=== PATIENT | female | born 1985 | race African-American/Black ===

== ENCOUNTER 2021-02-15 22:39 | Emergency (ER) | payer SELFPAY ==
[~2021-02-15] VITALS: Ht 167.6 cm; Wt 60.9 kg
[2021-02-16 00:33] LABS: COLLECTION METHOD CLEAN CATCH
[2021-02-16 00:46] LABS: MUCOUS Present /lpf; PH 5 (5-8); URINE APPEARANCE Cloudy; URINE BACTERIA None Seen /hpf; URINE BILIRUBIN Positive (NEGATIVE); URINE BLOOD Negative (NEGATIVE); URINE COLOR Amber; URINE GLUCOSE Negative (NEGATIVE); URINE KETONE Trace (NEGATIVE); URINE LEUKOCYTE ESTERASE Trace (NEGATIVE); URINE NITRATE Negative (NEGATIVE); URINE PROTEIN(semi-quant) 3+ (NEGATIVE)
[2021-02-16 00:59] LABS: BASO # 0.1 (0.0-0.2); BASO % 0.4 % (0.0-2.0); GRAN # 8.9 (1.4-6.5); GRAN % 72.9 % (42.2-75.2); HEMATOCRIT 50.2 % (37.0-47.0); LYMPH # 2.4 (1.2-3.4); LYMPH % 19.4 % (20.0-51.0); MEAN CELL VOLUME 91 fl (80.0-100.0); MEAN CORPUSCULAR HEMOGLOBIN 31 pg (27.0-31.0); MEAN CORPUSCULAR HGB CONC 34 g/dl (33.0-37.0); MEAN PLATELET VOLUME 10.2 fl (7.4-10.4); MONO # 0.8 (0.1-0.6); MONO % 6.6 % (1.7-9.3); PLATELET COUNT 320 K/mm3 (130-400); RED BLOOD COUNT 5.53 M/mm3 (4.10-5.30); REDCELL DISTRIBUTION WIDTH-CV 15.8 % (11.5-14.5)
[2021-02-16 01:10] LABS: ALBUMIN 5.3 gm/dL (3.5-5.0); CALCIUM 11.4 mg/dL (8.4-10.2); CREATININE, serum 1.87 (0.52-1.25); POTASSIUM 3.8 mmol/L (3.4-5.0); TOTAL PROTEIN 9.7 gm/dL (6.4-8.2)
[2021-02-16] MEDS ORDERED: CEPHALEXIN500 M1 PO (03:33)
[2021-02-16] MEDS ORDERED: ZOFRAN ODT4 MG PO (03:33)
[2021-02-16] MEDS ORDERED: PROTONIX 40MG T40 MG PO (03:36)
[2021-02-16 04:55] VITALS: BP 134/90; PULSE 83; TEMP 97.4
== END 2021-02-16 04:55 | disposition home or self-care (01) ==
LOC: COL.ER 22:39
PROVIDERS: Physician Assistant
DX: R10.31 Right lower quadrant pain (principal); R10.11 Right upper quadrant pain; R10.12 Left upper quadrant pain; Z90.49 Acquired absence of other specified parts of digestive tract; Z32.02 Encounter for pregnancy test, result negative
CPT/HCPCS: J0696; J1885; J2270; J7030